=== PATIENT | male | born 1980 | race Caucasian/White ===

== ENCOUNTER 2022-06-12 01:43 | Emergency (ER) | payer SELFPAY ==
[2022-06-12 01:43] VITALS: BMI 34.0
[2022-06-12 01:49] VITALS: BP 120/86; PULSE 79; RESP 16; TEMP 37.1; O2SAT 96
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
[2022-06-12] MEDS: tetanus-dipt-pertussis 0.5 mL SDV IM (01:55)
[2022-06-12] MEDS: iohexol 350 mg/mL 100 mL Btl IV (02:19)
[2022-06-12 03:34] VITALS: BP 125/78; PULSE 86; RESP 20; O2SAT 97
[2022-06-12] MEDS: neomycin-poly-bacitracin oint 28 gm 1 APPLIC TOPICAL (03:35)
[2022-06-12] MEDS: clindamycin 150 mg Capsule 450 MG PO (03:40)
[2022-06-12 03:59] VITALS: BP 122/78; PULSE 93; RESP 19; O2SAT 94
[2022-06-12 04:55] VITALS: BP 126/85; PULSE 99; RESP 19; O2SAT 94
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
[2022-06-12 05:57] VITALS: BP 128/83; PULSE 91; RESP 20; O2SAT 99
[2022-06-12 09:41] VITALS: BP 135/88; PULSE 87; RESP 19; O2SAT 96
--- NOTE | 2022-06-14 11:06 | DCPLANNER ---
Addendum entered by Rosy Mendez 06/29/22 16:00: assistant manager trainee received the following from the ENT clinic regarding follow up appointment: unable to leave message, mailing a letter that will include FA paperwork! Delonte Hayward completed item. Original Note: assistant manager trainee had message to schedule a follow up appointment for patient with ENT. assistant manager trainee sent patients information to the front office staff at ENT. Patients information will be printed and reviewed. Clinic will call patient with appointment information.
== END 2022-06-12 09:45 | disposition home or self-care (01) ==
PROVIDERS: Emergency Provider Emergency Medicine
DX: S02.2XXA Fracture of nasal bones, initial encounter for closed fracture (principal); K02.9 Dental caries, unspecified; J34.9 Unspecified disorder of nose and nasal sinuses; S00.01XA Abrasion of scalp, initial encounter; S00.511A Abrasion of lip, initial encounter; S01.21XA Laceration without foreign body of nose, initial encounter; S01.111A Laceration without foreign body of right eyelid and periocular area, initial encounter; S30.0XXA Contusion of lower back and pelvis, initial encounter; S00.83XA Contusion of other part of head, initial encounter; V86.59XA Driver of other special all-terrain or other off-road motor vehicle injured in nontraffic accident, initial encounter; Z23 Encounter for immunization
CPT/HCPCS: 12011; 70450; 70486; 71260; 72125; 74177; 90471; 90715; 99284; Q9967